=== PATIENT | female | born 1985 | race Caucasian/White ===

== ENCOUNTER 2021-01-14 11:46 | Emergency (ER) | payer OTHER ==
[~2021-01-14 11:46] MED LIST: BENTYL10 MG PO; CARAFATE1 GM PO; METRONIDAZOLE500 MG PO; NAPROXEN500 MG PO; NORCO 5-325 TA1 EACH PO; PHENERGAN25 M1 PO; SPRINTEC 28 DA1 EACH PO; ZOFRAN4 MG PO; ZOFRAN4 MG SL
[2021-01-14 13:00] LABS: BILIRUBIN NEGATIVE (NEGATIVE); BLOOD 2+ Ery/uL (NEGATIVE); CLARITY CLEAR (CLEAR); COLOR YELLOW (YELLOW); GLUCOSE (U) NORMAL (NORMAL); LEUKOCYTES 1+ Leu/uL (NEGATIVE); NITRITE POSITIVE (NEGATIVE); PROTEIN NEGATIVE (NEGATIVE); SPECIFIC GRAVITY 1.025 (1.001-1.030); UROBILINOGEN 0.2 mg/dL (0.2-1.0)
[2021-01-14 13:07] LABS: BASOPHIL 0.3 % (0-2); EOSINOPHIL 2.4 % (0-5); HCT 43.6 % (37.0-47.0); HGB 14.3 g/dl (12.5-16.0); MCH 31.7 pg (25.0-31.0); MCHC 32.8 g/dL (32.0-36.0); MCV 96.7 fL (78.0-100.0); MONOCYTE 5.9 % (0-12); MPV 9.6 fL (6.0-9.5); NEUTROPHIL 71.8 % (41-80); NRBC 0; PLT 237 K/uL (150-400); RBC 4.51 M/uL (4.20-5.40); RDW 13.9 % (11.5-14.0); WBC 10.1 K/uL (4.0-10.5)
[2021-01-14 13:13] LABS: BACTERIA TRACE; MUCOUS TRACE
[2021-01-14 13:31] LABS: ALBUMIN 4.5 g/dL (3.4-5.0); BILIRUBIN - TOTAL 0.3 mg/dL (0.2-1.0); BUN/CREAT RATIO (CALC) 11.3 RATIO; CREATININE 0.62 mg/dL (0.51-0.95); GLOBULIN (CALCULATION) 3.2 g/dL; POTASSIUM 3.7 mmol/L (3.5-5.1); TOTAL PROTEIN 7.7 g/dL (6.4-8.2)
[2021-01-14] MEDS ORDERED: NORCO 5-325 TA1 EACH PO (14:18)
[2021-01-14] MEDS ORDERED: FLOMAX0.4 MG PO (14:18)
[2021-01-14] MEDS ORDERED: CIPRO500 MG PO (14:18)
== END 2021-01-14 15:00 | disposition home or self-care (01) ==
LOC: FER 11:46
PROVIDERS: Internal Medicine
DX: N13.2 Hydronephrosis with renal and ureteral calculous obstruction (principal)
CPT/HCPCS: 36415; 80053; 81001; 83690; 85025; 87076; 87088; 87186; J1885; J2405; J7030